=== PATIENT | female | born 1975 | race Hispanic/Latino ===

== ENCOUNTER 2017-08-28 18:11 | Emergency (ER) | payer OTHER, SELFPAY ==
[2017-08-28 18:34] LABS: #Lymphocytes 1.6 thou/uL (1.20-3.40); #Monocytes 0.5 thou/uL (0.11-0.59); #Neutrophils 10.7 thou/uL (1.40-6.50); %Eosinophils 0.3 % (0.0-10.0); %Lymphocytes 12.8 % (21.0-51.0); %Monocytes 3.5 % (0.0-10.0); %Neutrophils 83.3 % (42.0-75.0); Hemoglobin 13.7 g/dL (12.0-16.0); Mean Corpuscular HGB CONC 34.6 g/dL (32.0-36.0); Mean Corpuscular Hemoglobin 30.1 pg (27.0-31.0); Mean Platelet Volume 6.9 fL (7.4-10.4); Platelet Count 315 thou/uL (130-400); RBC Distribution Width 11.3 % (11.5-14.5); Red Blood Cell (RBC) Count 4.55 mill/uL (4.20-5.40); White Blood Cell (WBC) Count 12.8 thou/uL (4.8-10.8)
[2017-08-28 18:56] LABS: ALT (SGPT) 14 U/L (8-55); AST (SGOT) 15 U/L (5-34); Albumin 4.3 g/dL (3.5-5.0); Alkaline Phosphatase 116 U/L (40-150); Anion Gap 13 mmol/L (10-20); BUN (Urea Nitrogen) 16 mg/dL (7.0-18.7); Bilirubin, Total 0.4 mg/dL (0.2-1.2); Calc. Creatinine Clearance 0 mL/min (70-130); Calcium 9.1 mg/dL (7.8-10.44); Carbon Dioxide 23 mmol/L (22-29); Chloride 104 mmol/L (98-107); Estimated GFR-MDRD 78; Globulin 3.5 g/dL (2.4-3.5); Glucose 115 mg/dL (70-105); Potassium 3.8 mmol/L (3.5-5.1); Protein, Total 7.8 g/dL (6.0-8.3); Sodium 136 mmol/L (136-145)
[2017-08-28 20:14] LABS: Bilirubin Negative (Negative); Blood, Urine Large (Negative); Clarity CLOUDY (Clear); Glucose, Urine (Dipstick) Negative (Negative); Leukocyte Negative (Negative); Nitrite Negative (Negative); Protein, Urine (Dipstick) Negative (Neg-Trace); Specific Gravity, Urine 1.033 (1.002-1.036); pH, Urine 5.5 (5.0-9.0)
[2017-08-28 20:22] LABS: Bacteria/HPF None Seen HPF (None Seen); Hyaline Casts/LPF 7-10 HYALINE CAST LPF (0-3 Hyaline); Pathc Cast-AUWi Flag 2.47 (0-2.49)
[2017-08-28 20:31] LABS: Pregnancy Test - Urine (BHCG) Negative (Negative); Pregu Control Background? CLEAR/WHITE (CLR/WHITE); Pregu Control Bar Appear? YES (CONTROL BAR); Specific Gravity 1.033 (1.002-1.036)
[2017-08-28] MEDS ORDERED: Ketorolac Tromethamine 30 MG/ML VIAL ONE (20:37)
[2017-08-28] MEDS ORDERED: Cyclobenzaprine 10 MG TAB ONE (22:07)
[2017-08-28] MEDS ORDERED: cefTRIAXone\\ROCEPHIN 250 MG VIAL ONE (22:07)
--- NOTE | 2017-08-28 22:07 | ULT ---
PELVIC ULTRASOUND 08/28/17 COMPARISON: None. HISTORY: Right sided pelvic pain. TECHNIQUE: Multiplanar craig scale sonographic imaging of the pelvis obtained with transabdominal and endovaginal imaging. The ovaries are assessed with color flow and spectral analysis. FINDINGS: The uterus measures 9.5 x 4.0 x 5.9 cm. Endometrial strip is 1 cm in thickness, within normal limits. Right ovary measures 2.4 x 1.6 x 1.6 cm and left ovary measures 4.1 x 2.6 x 2.1 cm. No discrete mass noted within either ovary. Ovaries demonstrate normal blood flow. The distribution associate demonstrates a 1.1 x 1.1 cm rounded area of echogenicity within the endometrium which could represent an endometrial pelon yp or a focal area of endometrial thickening. This could be better assessed via followup MRI or repea t followup ultrasound. There are prominent hypoechoic tubular structures in bilateral adnexal regions suggesting bilateral f luid filled and dilated fallopian tubes. IMPRESSION: 1. Findings suggesting markedly dilated and fluid filled bilateral fallopian tubes on the basis of hydrosalpinx. Pelvic inflammatory disease cannot be excluded on the basis of pyosalpinx. Clinical correlation is essential. 2. Focal area of rounded 1.1 x 1.0 cm echogenicity within the endometrial stripe as detailed abo ve. Further assessment of the tubular structures within the pelvis may be performed via followup pelvic M RI as clinically warranted. Code T POS: RICHIE
[2017-08-28] MEDS ORDERED: Lidocaine 1% PF 5 ML VIAL ONE (22:08)
== END 2017-08-28 22:40 | disposition home or self-care (01) ==
LOC: ERS 18:11
DX: N73.9 Female pelvic inflammatory disease, unspecified (principal); N30.01 Acute cystitis with hematuria
CPT/HCPCS: 36415; 76856; 80053; 81003; 81015; 81025; 85025; 96372; J0696; J1885; J2001